=== PATIENT | female | born 1995 | race Caucasian/White ===

== ENCOUNTER → 2020-12-08 | Outpatient (CLI) | payer OTHER ==
[2020-12-09 07:07] LABS: RUBELLA AB IGG-REFLAB 4.92 index (Immune >0.99)
== END | disposition home or self-care (01) ==
LOC: LABMN 15:14
PROVIDERS: ATTEND Internal Medicine
DX: Z02.1 Encounter for pre-employment examination (principal)
CPT/HCPCS: 86706; 86735; 86762; 86765; 86787

== ENCOUNTER 2021-02-19 10:09 | Emergency (ER) | payer OTHER ==
[~2021-02-19] VITALS: Ht 157.5 cm; Wt 56.8 kg
[2021-02-19 10:18] VITALS: BP 124/84
[2021-02-19 11:03] LABS: ALANINE AMINOTRANSFERASE 23 U/L (12-78); ALBUMIN 3.3 g/dL (3.4-5.0); ALKALINE PHOSPHATASE 43 U/L (46-116); ASPARTATE AMINOTRANSFERASE 17 U/L (15-37); BILIRUBIN,TOTAL 0.1 mg/dL (0.1-1.0); TOTAL PROTEIN, SERUM 6.7 g/dL (6.4-8.2)
[2021-02-19 11:44] LABS: BILIRUBIN,DIRECT < 0.05 mg/dL (0.00-0.20)
[2021-02-20 05:07] LABS: HEPATITIS C AB (EIA) <0.1 s/co ratio (0.0-0.9)
[2021-02-20 08:06] LABS: HIV 1-2 SCREEN 4TH GEN W/RFLX Non Reactive (Non Reactive)
== END 2021-02-19 11:13 | disposition home or self-care (01) ==
LOC: EMS 10:12
DX: Z77.21 Contact with and (suspected) exposure to potentially hazardous body fluids (principal)
CPT/HCPCS: 80076; 86706; 86803; 87340; 87389; 99283

== ENCOUNTER 2021-09-04 14:35 | Emergency (ER) | payer MEDICAID ==
[~2021-09-04] VITALS: Ht 157.5 cm; Wt 54.5 kg
[2021-09-04 14:55] VITALS: BP 125/82
[2021-09-04] MEDS ORDERED: AMOX500C2 PO (15:20)
[2021-09-04] MEDS ORDERED: AMOX500T2 PO (15:34)
[2021-09-04] MEDS ORDERED: BENZ1LOZ50 PO (15:34)
== END 2021-09-04 15:39 | disposition home or self-care (01) ==
LOC: EMS 14:35
DX: J02.9 Acute pharyngitis, unspecified (principal)
CPT/HCPCS: 87430; 99283

== ENCOUNTER 2022-05-22 22:35 | Emergency (ER) | payer BC, MEDICAID ==
[~2022-05-22] VITALS: Ht 157.5 cm; Wt 60.0 kg
[~2022-05-22 22:35] MED LIST: AMOX500T2 PO; BENZ1LOZ77 PO
[2022-05-22] MEDS ORDERED: DEXAMETHASONE SOD PHOS 4 MG/ML 5 ML VIAL IM ONE (22:45)
[2022-05-23 00:34] VITALS: BP 118/74
== END 2022-05-23 00:38 | disposition home or self-care (01) ==
LOC: EMS 22:38
DX: J02.9 Acute pharyngitis, unspecified (principal)
CPT/HCPCS: 99283; 96372; J1100

== ENCOUNTER 2023-08-28 15:28 | Emergency (ER) | payer BC, OTHER ==
[~2023-08-28] VITALS: Ht 157.5 cm; Wt 50.0 kg
[~2023-08-28 15:28] MED LIST changes: -BENZ1LOZ77 PO; +CEPACLZ PO
[2023-08-28 15:37] VITALS: TEMP 98.7
[2023-08-28 16:42] LABS: C.DIFF GDH ANTIGEN, Stool Negative (Negative); C.DIFF TOXINS A&B, Stool Negative (Negative)
[2023-08-28 18:00] VITALS: BP 111/74; PULSE 68; RESP 14
== END 2023-08-28 18:40 | disposition home or self-care (01) ==
LOC: EMS 15:35
DX: R19.7 Diarrhea, unspecified (principal); F41.9 Anxiety disorder, unspecified
CPT/HCPCS: 87045; 87177; 87324; 87449; 99283

== ENCOUNTER 2025-02-23 16:20 | Emergency (ER) | payer OTHER ==
[~2025-02-23] VITALS: Ht 157.5 cm; Wt 56.8 kg
[~2025-02-23 16:20] MED LIST changes: +BENZ1LOZ50 PO; -CEPACLZ PO
[2025-02-23 16:26] VITALS: BP 115/70; PULSE 75; RESP 16; TEMP 98.5; O2SAT 99
[2025-02-23 16:55] LABS: PLATELET COUNT (AUTO) 259 K/uL (150-450); RED BLOOD CELL COUNT(AUTO) 4.65 MIL/uL (4.00-5.20); RED CELL DISTRIBUTION WIDTH 12.7 % (11.5-14.5); WHITE BLOOD COUNT (AUTO) 6.7 K/uL (4.5-11.0)
[2025-02-23 17:00] LABS: APPEARANCE,URINE CLEAR (CLEAR); GLUCOSE, URINE (UA) NEGATIVE (NEGATIVE); LEUKOCYTE ESTERASE ,URINE NEGATIVE (NEGATIVE); NITRATE,URINE NEGATIVE (NEGATIVE); OCCULT BLOOD,URINE NEGATIVE (NEGATIVE); SPECIFIC GRAVITIY, URINE 1.013 (1.003-1.030)
[2025-02-23 17:09] LABS: CALCIUM, TOTAL 9.3 mg/dL (8.8-10.5); CREATININE 0.78 mg/dL (0.60-1.30); GLOMERULAR FILTR. RATE CALC > 60 mL/min (>60); GLUCOSE,RANDOM 97 mg/dL (70-110); UREA NITROGEN, BLOOD 14 mg/dL (7-18)
[2025-02-23 17:16] LABS: ASPARTATE AMINOTRANSFERASE 21 U/L (15-37); HCG,QUANTITATIVE < 1 mIU/mL (0-6); TOTAL PROTEIN, SERUM 7.7 g/dL (6.4-8.2)
[2025-02-23 17:21] LABS: SODIUM SERUM 140 mmol/L (136-145)
== END 2025-02-23 17:00 | disposition home or self-care (01) ==
LOC: EMS 16:20
DX: R10.32 Left lower quadrant pain (principal); R19.7 Diarrhea, unspecified; R10.22 Pelvic and perineal pain left side
CPT/HCPCS: 74176; 80048; 80076; 81003; 83690; 84702; 85025; 99284